=== PATIENT | female | born 1965 | race Caucasian/White ===

== ENCOUNTER 2018-06-07 10:55 | Observation (INO) | payer BC ==
[2018-06-07] MEDS ORDERED: NS 0.9% 1000 ML* 1,000 ML IV ONE (11:26)
[2018-06-07] MEDS ORDERED: Ondansetron INJ* 2 MG/ML VIAL IV ONE (11:27)
--- NOTE | 2018-06-07 11:28 | ED ---
Throat Pain/Nasal Congestion - HPI Summary HPI Summary: This patient is a 52 year old F presenting to ED with a chief complaint of throat pain since 2099 last night. The CC is described as constant, non- radiating pain, unable to swallow since dinner last night (she had chicken and noodles) and is the worst episode shes ever had. She has always been able to move her body and change her position to help the food pass. The patient rates the pain 4/10 in severity. Symptoms aggravated by nothing. Symptoms alleviated by nothing. Patient reports vomiting since last night (does not alleviate the pain). Patient denies weight loss, fever, and spitting. PMHx of always had issues with food getting stuck in her throat (runs in the family). She has never had a GI doctor or had a scope. Her brother had a scope but they stretched it out. - History of Current Complaint Chief Complaint: EDThroatPain Time Seen by Provider: 06/07/18 11:01 Hx Obtained From: Patient Onset/Duration: Sudden Onset, Lasting Days - since 2099 last night, Still Present Severity: Moderate - 4/10 - Allergies/Home Medications Allergies/Adverse Reactions: Allergies Allergy/AdvReac Type Severity Reaction Status Date / Time No Known Allergies Allergy Verified 06/07/18 10:59 Home Medications: Home Medications NK [No Home Medications Reported] 06/07/18 [History Confirmed 06/07/18] PMH/Surg Hx/FS Hx/Imm Hx Endocrine/Hematology History: Denies: Hx Diabetes, Hx Thyroid Disease Cardiovascular History: Denies: Hx Hypertension Respiratory History: Denies: Hx Asthma, Hx Chronic Obstructive Pulmonary Disease (COPD) GI History: Denies: Hx Ulcer - Cancer History Hx Chemotherapy: No Hx Radiation Therapy: No - Surgical History Surgery Procedure, Year, and Place: BACK FUSION [facility] 2005 Infectious Disease History: No Infectious Disease History: Denies: Hx Hepatitis, Hx Human Immunodeficiency Virus (HIV), Traveled Outside the [place] in Last 30 Days - Family History Known Family History: Positive: Other Family History: Esophagus strictures - Social History Alcohol Use: Daily Substance Use Type: Reports: None Smoking Status (MU): Never Smoked Tobacco Review of Systems Negative: Fever, Chills Negative: Erythema Positive: Sore Throat - after PO at 2099 last night; unable to swallow , Other - denies spitting Negative: Chest Pain Negative: Shortness Of Breath, Cough Positive: Vomiting - after PO last night, Other - denies weight loss. Negative : Abdominal Pain, Nausea Negative: dysuria, hematuria Negative: Myalgia, Edema Negative: Rash Neurological: Other - denies dizziness All Other Systems Reviewed And Are Negative: Yes Physical Exam - Summary Physical Exam Summary: Constitutional: Well-developed, Well-nourished, Alert. (-) Distressed Skin: Warm, Dry HENT: Normocephalic; Atraumatic. Eyes: Conjunctiva normal Neck: Musculoskeletal ROM normal neck. (-) JVD, (-) Stridor, (-) Tracheal deviation. PO challenge: Started gagging right away and discomfort intensified. Cardio: Rhythm regular, rate normal, Heart sounds normal; Intact distal pulses; The pedal pulses are 2+ and symmetric. Radial pulses are 2+ and symmetric. (-) Murmur Pulmonary/Chest wall: Effort normal. (-) Respiratory distress, (-) Wheezes, (-) Rales Abd: Soft, (-) epigastric tenderness, (-) Distension, (-) Guarding, (-) Rebound Musculoskeletal: (-) Edema Lymph: (-) Cervical adenopathy Neuro: Alert, Oriented x3 Psych: Mood and affect Normal Triage Information Reviewed: Yes Vital Signs On Initial Exam: Initial Vitals Temp Pulse Resp BP Pulse Ox 99.3 F 94 17 157/80 99 06/07/18 10:57 06/07/18 10:57 06/07/18 10:57 06/07/18 10:57 06/07/18 10:57 Vital Signs Reviewed: Yes Diagnostics - Vital Signs Vital Signs Temp Pulse Resp BP Pulse Ox 06/07/18 10:57 99.3 F 94 17 157/80 99 - Laboratory Result Diagrams: 06/07/18 11:39 06/07/18 11:39 Lab Statement: Any lab studies that have been ordered have been reviewed, and results considered in the medical decision making process. Re-Evaluation - Re-Evaluation First Eval Re-Evaluation Time: 11:28 Comment: Discussed discharge plan with the patient. EENT Course/Dx - Course Assessment/Plan: This patient is a 52 year old F presenting to ED with a chief complaint of throat pain since 2100 last night after PO. Patient reports vomiting since last night (does not alleviate the pain). Patient denies weight loss, fever, and spitting. I suspect the patient has food impaction. She has FHx of esophagus strictures. The patient will be admitted to wait for scoping. Patient is agreeable with this plan. - Diagnoses Provider Diagnoses: Food impaction of esophagus - Provider Notifications Discussed Care Of Patient With: Devante Pitts Time Discussed With Above Provider: 11:31 Instructed by Provider To: Other - Consulted Dr. Pitts who says he will scope the patient but has 5 patients ahead of her. Consulted Dr. Graf at 1135 who will see the patient in the ED. Discharge - Sign-Out/Discharge Documenting (check all that apply): Patient Departure - admit, awaiting scope All imaging exams completed and their final reports reviewed: Yes - Discharge Plan Condition: Stable Disposition: ADMITTED TO [facility] - Attestation Statements Document Initiated by Scribe: Yes Documenting Scribe: Shan Murdock Provider For Whom Scribe is Documenting (Include Credential): Jerald Marin MD Scribe Attestation: I, Shan Murdock, scribed for Jerald Marin MD on 06/07/18 at 1552.
[2018-06-07] MEDS ORDERED: Ondansetron INJ* 2 MG/ML VIAL IV PRN (11:44)
[2018-06-07 11:46] LABS: Hematocrit 40 % (35-47); Hemoglobin 13.5 g/dl (12.0-16.0); Mean Corpuscular HGB Conc 34 g/dl (31-36); Mean Corpuscular Hemoglobin 32 pg (27-31); Mean Corpuscular Volume 95 fL (80-97); Mean Platelet Volume 7.5 um3 (7.4-10.4); Platelet Count 326 10^3/ul (150-450); Red Blood Count 4.26 10^6/ul (4.00-5.40); Red Cell Distribution Width 14 % (10.5-15); White Blood Count 8.5 10^3/ul (3.5-10.8)
[2018-06-07 12:05] LABS: EGFR Non-African American 71.6 (>60)
[2018-06-07] MEDS ORDERED: NS 0.9% 1000 ML* 1,000 ML IV SCH (12:30)
--- NOTE | 2018-06-07 14:43 | HP ---
CC: Dr. Duffy * HISTORY AND PHYSICAL: DATE OF ADMISSION: 06/07/18 PROVIDER: Lynnette Lopez NP ATTENDING PHYSICIAN: Dr. Jackson * (report dictated by Lynnette Lopez NP) PRIMARY CARE PROVIDER: Dr. Duffy. CHIEF COMPLAINT: "Food stuck in esophagus." HISTORY OF PRESENT ILLNESS: Ms. Silva is a 52-year-old female with a past medical history of depression, migraines, and lumbar fusion, who presents to the emergency department today with a report of feeling that food is stuck in her esophagus. She reports she has a history of esophageal narrowing in the past and denies history of esophageal dilatation. She reports that fairly frequently, she will get food stuck in her esophagus but this usually resolves with changing her position and with movement or taking a sip of water. She reports last night, she was eating chicken and noodles for dinner where after the second bite, she had the sensation that there was food stuck in her esophagus creating some midsternal pain. She tried changing her position and taking sip of water; however, this did not resolve the feeling of what she describes as pain in her midsternal region about 6/10. She reports then last night, every time she took a sip of water, she would vomit. She denied nausea, but stated every time she would swallow something, it would come right back up. This morning, she came to the emergency department for further evaluation. Currently, in the emergency department where the patient is evaluated, she is sitting up in the chair, alert and oriented x3, in no acute distress. She reports that she did try to take a sip of water for the emergency room physician and she did regurgitate back up the water. It is suspected that she has acute upper esophageal obstruction in which she will require an upper endoscopy. She will be admitted to the hospitalist service on observation. PAST MEDICAL HISTORY: 1. Migraines. 2. Depression. 3. History of lumbar fusion in 2005 with 2 subsequent back surgeries in 2006 for herniated disk. CURRENT MEDICATIONS: None. ALLERGIES: No known allergies. FAMILY HISTORY: Reviewed and noncontributory. SOCIAL HISTORY: The patient denies history of tobacco abuse. Rare alcohol use. She lists her daughter, Abhilash, as her healthcare proxy. Her number is [phone]. REVIEW OF SYSTEMS: A 14-point review of systems was performed. Other pertinent positives and negatives are mentioned in the history of present illness. Otherwise, are negative. PHYSICAL EXAMINATION GENERAL APPEARANCE: Well-developed, 52-year-old female, sitting up in a chair in the emergency department room, in no acute distress. Good historian. VITAL SIGNS: Temperature 99.3, heart rate 94, respirations 17, O2 sat 99% on room air, blood pressure 157/80. HEENT: Head is normocephalic, atraumatic. Pupils are equal and reactive to light. Oropharynx is clear. Moist mucous membranes. No oropharyngeal erythema or edema noted. NECK: Supple. LUNGS: Clear to auscultation bilaterally. Good aeration throughout. No accessory muscle use. CARDIAC: S1, S2. Regular rate and rhythm. No murmur, rub, or gallop appreciated. No lower extremity edema noted. ABDOMEN: Soft, nontender, nondistended. Normal bowel sounds throughout. EXTREMITIES: Moves all extremities. Strength is 5/5 throughout. NEURO: Alert and oriented x3. No focal deficits noted. LABORATORY DATA: Sodium 138, potassium 4.0, chloride 101, carbon dioxide 26, anion gap 11, BUN 16, creatinine 0.83, glucose 106, calcium 9.4. WBC is 8.5, RBC 4.26, Hgb 13.5, Hct 40, MCV 95, MCH 32, MCHC 34, RDW 14, platelet count 326. ASSESSMENT AND PLAN: Ms. Silva is a 52-year-old female with a past medical history of migraines, depression, lumbar surgery with a history of esophageal narrowing, who reports that last evening she was eating dinner when she felt that a piece of chicken became logged in her esophagus in which she did develop some emesis every time she would try to "wash down the food or hydrate myself." The patient will be admitted to the hospitalist service on observation with plan for upper endoscopy. 1. Acute esophageal obstruction. The patient is stable. She is unable to take any food or fluids in as every time this happened, she vomits immediately. She currently is comfortable and oxygenating well. She does have some mild discomfort in her mid sternal area. She has not required any pain medication at this point. The plan will be to place an IV and give her 1 L of normal saline. N.p.o. with plan for upper endoscopy this afternoon with window shade ring sewer, Dr. Pitts. Most likely, the patient will be able to be discharged to home this late afternoon or early evening. 2. Depression, controlled, not currently on medication. 3. DVT prophylaxis, low risk. The patient is ambulating. 4. Code status. Full code. 5. Hospital status. Observation in CDU unit. 6. Healthcare proxy. The patient's daughter, Abhilash, . TIME SPENT: Approximately 60 minutes was spent on this admission. LYNNETTE LOPEZ, MARSHA [id number]/[facility] #: [id number] PATRICIA
[2018-06-07] MEDS ORDERED: Midazolam* 1 MG/ML 10 ML VIAL (10 MG) ONE (15:09)
[2018-06-07] MEDS ORDERED: fentaNYL* 50 MCG/ML 2 ML VIAL (100 MCG VIAL) ONE (15:09)
[2018-06-07 15:18] VITALS: BP 140/82
--- NOTE | 2018-06-08 01:08 | DS ---
CC: Dr. Duffy * DISCHARGE SUMMARY: DATE OF ADMISSION: 06/07/18 DATE OF DISCHARGE: 06/07/18 PROVIDER: Lynnette Lopez NP ATTENDING PHYSICIAN: Dr. Bullard * (report dictated by Lynnette Lopez NP). PRIMARY CARE PROVIDER: Dr. Duffy. CONSULTING PHYSICIAN: Dr. Pitts, co founder and director. DISCHARGE DIAGNOSIS: Acute esophageal obstruction secondary to food. HISTORY OF PRESENT ILLNESS/HOSPITAL COURSE: Ms. Silva is a 52-year-old female who presented earlier to the emergency department with report of "food stuck in esophagus." Please see full history and physical dictated by this author for full admission details. She was admitted to the hospitalist service on observation. She was seen in consultation by Dr. Pitts, who performed upper endoscopy and reported he retrieved two pieces of Brussel sprout stuck in her esophagus. He also reported that it noted she possibly has eosinophil esophagitis and he took some biopsies reporting he will follow up on the biopsies and follow up with the patient this week. The patient is stable for discharge to home. As stated above, Dr. Pitts will follow up with the patient after the biopsies have resulted. She may need treatment for the eosinophil esophagitis if this is what the biopsy show. The patient was also instructed to follow up with her primary care provider. She is stable for discharge home. She was instructed she could not drive herself home and need to be driven home due to receiving conscious sedation for the endoscopy. She offers no complaints. Vital signs are stable. The patient agrees with plan. DISCHARGE MEDICATIONS: None at the time of discharge. TIME SPENT: Approximately 30 minutes was spent on this discharge. LYNNETTE LOPEZ NP [id number]/[facility] #: [id number] PATRICIA
--- NOTE | 2018-06-08 21:44 | PRO ---
CC: Dr. Solitario * DATE OF PROCEDURE: 06/07/18 - ROOM #418 PROCEDURE: Esophagogastroduodenoscopy with foreign body removal. INDICATION: Esophageal foreign body. REFERRING PHYSICIAN: Dr. Solitario. MEDICATIONS GIVEN: 75 mcg IV fentanyl, 10 mg IV Versed. DESCRIPTION OF PROCEDURE: After the EGD procedure including the risks, benefits , and alternatives not limited to perforation, surgery, and/or were explained to Ms. Silva, a written consent was then obtained, IV medication was given, and a bite block was placed between the teeth. Olympus gastroscope was then inserted into the patient's mouth, advanced down the esophagus. In the esophagus, there was a foreign body. I did use snare to grasp the top of it and withdrew it from the patient. The scope was then re-inserted into the patient's mouth, advanced down the esophagus, into the stomach, and into the distal duodenum. At the esophagus, there was a visible stricture. Additionally , she had cobblestoning and numerous fine rings throughout the entirety of the esophagus consistent with eosinophilic esophagitis. Biopsies were obtained throughout the entirety of the esophagus. The scope was advanced through the GE junction into the body of the stomach. Retroflexion and forward views were unremarkable. The scope was advanced through widely patent pylorus, duodenal bulb into the distal duodenum both of which were unremarkable. The scope was then withdrawn from the patient. She tolerated the procedure well and was returned to the hospital room in stable condition. IMPRESSION: 1. Complete upper endoscopy into the distal duodenum with esophageal foreign body removal and biopsies. 2. Esophageal foreign body removal, it was a brussels sprout. 3. Biopsies for eosinophilic esophagitis. 4. I will follow up on the biopsies and will report back to the patient at that time. [id number]/[facility] #: [id number] MTDD
--- NOTE | 2018-06-11 18:13 | CONS ---
CONSULTATION REPORT: DATE OF CONSULT: 06/07/18 INDICATION: Esophageal foreign body. NARRATIVE: Ms. Silva is a pleasant 52-year-old female who comes to the emergency room this morning after feeling a sensation of her dinner from last night becoming stuck in her esophagus. She states that she has had these symptoms before; however, the foods never become stuck and unable to be dislodged. She often times can vomit and dislodge the food herself. She was eating chicken last night. She denies any unintentional weight loss. There has been no chest pain. She does have a family history of dysphagia and she believes one of her brothers may have had something stretched in his esophagus. She is unable to drink any water at this point, comes right back up. PAST MEDICAL HISTORY: Significant for depression and migraine. PAST SURGICAL HISTORY: Include herniated disk surgery. MEDICATIONS: None. ALLERGIES: None. FAMILY HISTORY: Please see the HPI. She denies any esophageal cancer in the family. SOCIAL HISTORY: She denies any tobacco, unusual to have alcohol. No IV drugs. REVIEW OF SYSTEMS: Twelve systems were reviewed and other than that mentioned in the HPI were unremarkable. PHYSICAL EXAM: Temperature is 99.3, blood pressure is 157/80, pulse is 94, respiratory rate is 17, O2 sat 99% on room air. General: Well-appearing female , lying flat in bed, in no apparent distress. Alert, oriented, pleasant, fluent. HEENT: Mucous membranes are moist without lesions, ulcers, or exudate. Neck is supple. Trachea is midline. Head is normocephalic, atraumatic. Heart: Regular rate and rhythm. No murmurs, rubs, or gallops. Lungs: Clear to auscultation bilaterally. No wheezes, rales, or rhonchi. Abdomen: Positive bowel sounds, soft, nontender, nondistended. No hepatosplenomegaly, masses, rebound, or guarding. Skin: Warm and dry. No rashes or ulcers. LABORATORY DATA: Of note, she has a white count of 8.5, hemoglobin of 13.5, platelet count of 326. ASSESSMENT AND PLAN: This is a very pleasant 52-year-old female with history of dysphagia in the past. At this point, she is complaining of a continued esophageal foreign body sensation. I believe at this point we need to perform an upper endoscopy. The patient is going to be admitted to the hospital for a 23-hour OBV. We will perform her upper endoscopy little bit later on today. I did discuss possible causes of her dysphagia with her including, but not limited to, strictures, rings, eosinophilic esophagitis, motility disorder, and/ or malignancy. [id number] #: [id number] MTDD
== END 2018-06-07 17:25 | disposition home or self-care (01) ==
LOC: ED 10:55 → MED 12:05
PROVIDERS: ADMIT Internal Medicine; ATTEND Internal Medicine
DX: K22.2 Esophageal obstruction (principal); J02.9 Acute pharyngitis, unspecified; K20.8 Other esophagitis; R11.10 Vomiting, unspecified
CPT/HCPCS: 36415; 80048; 85027; 88305; 96361; 96374; 99156; 99282; G0378; J2250; J2405; J3010